=== PATIENT | male | born 1960 | race Two or more races ===

== ENCOUNTER 2016-11-02 17:55 | Emergency (ER) | payer OTHER ==
[~2016-11-02] VITALS: Ht 160 cm; Wt 72.6 kg
[2016-11-02] MEDS ORDERED: BACITRACIN TOP OINT 1 UD PKG TOP ONE ×2 (21:30→22:53)
[2016-11-02] MEDS ORDERED: LIDOCAINE 1% HCL (LOCAL ANESTH.) INJ 20ML MDV IJ ONE (21:30)
[2016-11-02] MEDS ORDERED: TETANUS-DIPTH-ACEL PERTUSSIS 0.5ML SYRG IM ONE ×2 (21:30→21:45)
[2016-11-02] MEDS ORDERED: KETOROLAC TROMETH 60MG/2ML VIAL IM ONE (21:30)
[2016-11-02] MEDS ORDERED: SODIUM CHLORIDE 0.9% 1,000 ML IV ONE ×2 (21:40)
[2016-11-02] MEDS ORDERED: MORPHINE SULF INJ 2 MG/ML SYRINGE 1ML IV ONE (21:45)
[2016-11-02] MEDS ORDERED: ONDANSETRON ODT 4 MG TAB PO ONE (21:45)
[2016-11-02 21:58] VITALS: BP 138/78
[2016-11-02] MEDS ORDERED: cefTRIAXone SOD 1,000 MG VL IV ONE (22:00)
[2016-11-02] MEDS ORDERED: cefTRIAXone 1GM/50ML D5W 50 ML IV ONE ×2 (22:02→22:15)
[2016-11-02 22:29] LABS: Basophils # (auto) 0 uL; Basophils % (auto) 0.4 % (0.0-2.0); Eosinophils # (auto) 0 uL; Eosinophils % (auto) 0.1 % (0.0-7.0); Hematocrit 42.5 % (41.0-53.0); Hemoglobin 14.5 g/dL (13.5-17.5); Lymphocytes # (auto) 1.6 uL; Lymphocytes % (auto) 14.7 % (10.0-50.0); Mean Corpuscular Hemoglobin 30.3 pg (28.0-32.0); Mean Corpuscular Volume 89.2 fL (80.0-100.0); Mean Platelet Volume 8.3 fL (7.4-10.4); Monocytes # (auto) 0.7 uL; Monocytes % (auto) 6.5 % (0.0-12.0); Neutrophils # (auto) 8.5 uL; Neutrophils % (auto) 78.3 % (37.0-80.0); Platelet Count (auto) 275 10^3/uL (140-450); White Blood Cell 10.9 10^3/uL (4.4-10.8)
[2016-11-02 22:45] LABS: INR 0.99 (0.9-1.15); Partial Thromboplastin Time 27.1 sec (22.64-33.71); Prothrombin Time 10.8 sec (9.37-12.3)
[2016-11-02 22:52] LABS: Albumin 4.1 g/dL (3.4-5.0); BUN/Creatinine Ratio 22.6; Bilirubin, Total 0.3 mg/dL (0.2-1.0); Calcium 8.7 mg/dL (8.5-10.1); Total Protein 7.6 g/dL (6.4-8.2)
== END 2016-11-03 00:04 | disposition home or self-care (01) ==
LOC: ER 18:10
DX: S62.397B Other fracture of fifth metacarpal bone, left hand, initial encounter for open fracture (principal); S51.012A Laceration without foreign body of left elbow, initial encounter; S61.422A Laceration with foreign body of left hand, initial encounter; V43.52XA Car driver injured in collision with other type car in traffic accident, initial encounter; Y93.89 Activity, other specified; Y92.89 Other specified places as the place of occurrence of the external cause; Y99.8 Other external cause status
CPT/HCPCS: 12001; 29125; 36415; 71010; 73080; 73130; 80053; 85025; 85610; 85730; 90471; 90715; 96365; 96375; 99285; J0696; J1885; J2001; J2270; J7030; Q0162